=== PATIENT | male | born 1995 | race Two or more races ===

== ENCOUNTER 2018-03-15 17:05 | Emergency (ER) | payer MEDICAID ==
[~2018-03-15] VITALS: Ht 175.3 cm; Wt 86.3 kg
[~2018-03-15 17:05] MED LIST: CEPH500C5 PO
[2018-03-15 17:46] LABS: ALANINE AMINOTRANSFERASE 32 U/L (12-78); ALBUMIN 4.4 G/DL (3.4-5.0); ALBUMIN/GLOBULIN RATIO 1.3 (1.1-1.5); ALKALINE PHOSPHATASE 112 IU/L (46-116); ANION GAP 13 (8-16); ASPARTATE AMINO TRANSFERASE 24 U/L (10-37); BILIRUBIN,TOTAL 0.6 MG/DL (0.1-1.0); BLOOD UREA NITROGEN 13 MG/DL (7-18); BUN/CREATININE RATIO 10.3 (5.4-32.0); CALCIUM 8.8 MG/DL (8.5-10.1); CHLORIDE 104 MMOL/L (99-107); CREATININE 1.26 MG/DL (0.60-1.10); GLUCOSE 115 MG/DL (70-104); INR 1.1 INR; POTASSIUM 3.4 MMOL/L (3.5-5.1); SODIUM 142 MMOL/L (135-145); TOTAL CARBON DIOXIDE 24.7 MMOL/L (24-32); TOTAL PROTEIN 7.9 G/DL (6.4-8.2); eGFR 71 ML/MIN
[2018-03-15 17:49] LABS: BASOPHILS # (AUTO) 0.1 X10'3 (0-0.2); BASOPHILS % (AUTO) 0.9 % (0-1); EOSINOPHILS # (AUTO) 0.1 X10'3 (0-0.9); EOSINOPHILS % (AUTO) 0.6 % (0-6); HEMATOCRIT 49.3 % (42.0-52.0); HEMOGLOBIN 17.1 g/dl (14.0-17.9); LYMPHOCYTES # (AUTO) 2.1 X10'3 (1.1-4.8); LYMPHOCYTES % (AUTO) 16.6 % (21-51); MEAN CORPUSCULAR HEMOGLOBIN 31.4 PG (27.0-31.0); MEAN CORPUSCULAR HGB CONC 34.8 % (33.0-36.5); MEAN CORPUSCULAR VOLUME 90.5 FL (78-98); MEAN PLATELET VOLUME 11.9 FL (7.4-10.4); MONOCYTES # (AUTO) 0.8 X10'3 (0-0.9); MONOCYTES % (AUTO) 6.6 % (2-12); NEUTROPHILS # (AUTO) 9.3 X10'3 (1.8-7.7); NEUTROPHILS % (AUTO) 75.3 % (42-75); PLATELET COUNT 187 X10'3 (140-440); RED BLOOD COUNT 5.45 X10'6 (4.70-6.10); RED CELL DISTRIBUTION WIDTH 12.1 % (11.5-14.5); WHITE BLOOD COUNT 12.4 X10'3 (4.5-11.0)
[2018-03-15] MEDS ORDERED: iohexol 300mg/ml 100ml inj. ONE (19:35)
[2018-03-15 19:50] LABS: CLARITY,URINE CLEAR (Clear); COLOR,URINE YELLOW (Yellow); GLUCOSE, URINE NEGATIVE (Neg); KETONES,URINE 15 mg/dl (Neg); LEUKOCYTE ESTERASE ,URINE NEGATIVE (Neg); NITRITES, URINE NEGATIVE (Neg); OCCULT BLOOD,URINE NEGATIVE (Neg); PROTEIN,URINE NEGATIVE (Neg)
[2018-03-15 19:53] LABS: UA COLLECTION TYPE CLN CATCH MIDSTREAM
[2018-03-15 19:59] VITALS: BP 140/88
[2018-03-15] MEDS ORDERED: ONDA8TAB6 PO (20:25)
[2018-03-15] MEDS ORDERED: OMEP40CA37 PO (20:25)
== END 2018-03-15 20:34 | disposition home or self-care (01) ==
LOC: ER 17:06
DX: R10.13 Epigastric pain (principal); R10.31 Right lower quadrant pain; R10.84 Generalized abdominal pain; F17.200 Nicotine dependence, unspecified, uncomplicated; Z98.890 Other specified postprocedural states; Z79.899 Other long term (current) drug therapy
CPT/HCPCS: 36415; 74177; 80053; 81003; 85025; 85610; 99285; Q9967

== ENCOUNTER 2019-02-14 15:44 | Emergency (ER) | payer MEDICAID ==
[~2019-02-14] VITALS: Ht 177.8 cm; Wt 93.0 kg
[~2019-02-14 15:44] MED LIST changes: -CEPH500C5 PO; +ONDA8TAB6 PO
[2019-02-14] MEDS ORDERED: triamcinolone acetonide 40mg/ml inj IM ONE (16:40)
[2019-02-14] MEDS ORDERED: ketorolac tromethamine 15mg/ml inj. IM ONE (16:45)
[2019-02-14] MEDS ORDERED: DIPH-423 PO (16:59)
[2019-02-14] MEDS ORDERED: FAMO40TA73 PO (16:59)
[2019-02-14] MEDS ORDERED: PRED10TA23 PO (16:59)
[2019-02-14 17:28] VITALS: BP 140/79
== END 2019-02-14 17:30 | disposition home or self-care (01) ==
LOC: ER 15:45 → MERGE 15:45 → ER 17:30
DX: L23.7 Allergic contact dermatitis due to plants, except food (principal)
CPT/HCPCS: 96372; 99283; J1885; J3301

== ENCOUNTER 2019-03-13 06:33 | Emergency (ER) | payer MEDICAID ==
[~2019-03-13] VITALS: Ht 175.3 cm; Wt 93.2 kg
[~2019-03-13 06:33] MED LIST changes: +DIPH-423 PO; +FAMO40TA73 PO; +PRED10TA23 PO
[2019-03-13 06:34] VITALS: BP 133/73
--- NOTE | 2019-03-13 06:41 | NUR ---
PAIN IN RIGHT LOWER ABD FOR THE PAST 2 DAYS. STATES SHE HAS BEEN COUGHING UP BLOOD FOR THE PAST 2-3 WEEKS. HAVING LOOSE STOOLS ON AND OFF. TESTED FOR ULCERS IN THE PAST FOR THE SAME SYMPTOMS.
[2019-03-13 07:48] LABS: BASOPHILS % (AUTO) 0.4 % (0-1); EOSINOPHILS # (AUTO) 0.1 X10'3 (0-0.9); EOSINOPHILS % (AUTO) 2.3 % (0-6); HEMATOCRIT 44.8 % (42.0-52.0); HEMOGLOBIN 15.3 g/dl (14.0-17.9); LYMPHOCYTES # (AUTO) 1.2 X10'3 (1.1-4.8); LYMPHOCYTES % (AUTO) 22.2 % (21-51); MEAN CORPUSCULAR HEMOGLOBIN 31.3 PG (27.0-31.0); MEAN CORPUSCULAR VOLUME 91.9 FL (78-98); MEAN PLATELET VOLUME 11.1 FL (7.4-10.4); MONOCYTES # (AUTO) 0.5 X10'3 (0-0.9); MONOCYTES % (AUTO) 9.5 % (2-12); NEUTROPHILS # (AUTO) 3.7 X10'3 (1.8-7.7); NEUTROPHILS % (AUTO) 65.6 % (42-75); PLATELET COUNT 155 X10'3 (140-440); RED BLOOD COUNT 4.88 X10'6 (4.70-6.10); RED CELL DISTRIBUTION WIDTH 13.2 % (11.5-14.5); WHITE BLOOD COUNT 5.6 X10'3 (4.5-11.0)
[2019-03-13 08:06] LABS: ALANINE AMINOTRANSFERASE 27 U/L (12-78); ALBUMIN 4.1 G/DL (3.4-5.0); ALBUMIN/GLOBULIN RATIO 1.1 (1.1-1.5); ALKALINE PHOSPHATASE 92 IU/L (46-116); ANION GAP 10 (8-16); ASPARTATE AMINO TRANSFERASE 15 U/L (10-37); BILIRUBIN,TOTAL 0.4 MG/DL (0.1-1.0); BLOOD UREA NITROGEN 11 MG/DL (7-18); BUN/CREATININE RATIO 10.1 (5.4-32.0); CALCIUM 9.1 MG/DL (8.5-10.1); CHLORIDE 107 MMOL/L (99-107); CREATININE 1.09 MG/DL (0.60-1.10); GLUCOSE 97 MG/DL (70-104); LIPASE 70 U/L (73-393); POTASSIUM 3.8 MMOL/L (3.5-5.1); SODIUM 143 MMOL/L (135-145); TOTAL CARBON DIOXIDE 26.2 MMOL/L (24-32); TOTAL PROTEIN 7.9 G/DL (6.4-8.2); eGFR 83 ML/MIN
[2019-03-13 08:07] LABS: LARGE PLATELETS FEW; PLATELET ESTIMATE NORMAL
== END 2019-03-13 08:43 | disposition home or self-care (01) ==
LOC: ER 06:33
DX: R04.2 Hemoptysis (principal); R10.31 Right lower quadrant pain; F17.200 Nicotine dependence, unspecified, uncomplicated; Z79.899 Other long term (current) drug therapy
CPT/HCPCS: 36415; 71046; 80053; 83690; 85025; 85610; 99284

== ENCOUNTER 2019-03-18 08:24 | Emergency (ER) | payer MEDICAID ==
[~2019-03-18] VITALS: Ht 175.3 cm; Wt 93.2 kg
[~2019-03-18 08:24] MED LIST changes: -PRED10TA23 PO
[2019-03-18] MEDS ORDERED: pantoprazole 40mg Tablet.DR PO ONE (08:50)
[2019-03-18] MEDS ORDERED: famotidine 20mg tablet PO ONE (08:50)
[2019-03-18] MEDS ORDERED: PANT-47 PO (08:51)
[2019-03-18 09:14] VITALS: BP 139/109
[2019-03-19] MEDS ORDERED: SUCR1TAB34 PO (10:45)
[2019-03-19] MEDS ORDERED: HYDR-3965 PO (10:45)
== END 2019-03-18 09:18 | disposition home or self-care (01) ==
LOC: ER 08:24
DX: R04.2 Hemoptysis (principal); Z98.890 Other specified postprocedural states; Z79.899 Other long term (current) drug therapy
CPT/HCPCS: 99283

== ENCOUNTER 2019-03-19 08:27 | Emergency (ER) | payer MEDICAID ==
[~2019-03-19] VITALS: Ht 175.3 cm; Wt 93.1 kg
[~2019-03-19 08:27] MED LIST changes: +PANT-47 PO
[2019-03-19] MEDS ORDERED: famotidine 10mg tablet PO ONE (09:05)
[2019-03-19] MEDS ORDERED: mag hydrox/Alum hydrox/simeth 30ml oral suspension PO ONE (09:05)
[2019-03-19] MEDS ORDERED: famotidine 10mg tablet PO SCH (09:05)
[2019-03-19] MEDS ORDERED: famotidine 20mg tablet PO ONE (09:20)
[2019-03-19] MEDS: LIDOcaine Viscous 15ml cup MM PRN ×2 (09:27→09:34)
[2019-03-19 09:33] LABS: BASOPHILS % (AUTO) 0.4 % (0-1); EOSINOPHILS # (AUTO) 0.1 X10'3 (0-0.9); EOSINOPHILS % (AUTO) 1.7 % (0-6); HEMATOCRIT 42.5 % (42.0-52.0); HEMOGLOBIN 15.1 g/dl (14.0-17.9); LYMPHOCYTES # (AUTO) 1.1 X10'3 (1.1-4.8); LYMPHOCYTES % (AUTO) 14.8 % (21-51); MEAN CORPUSCULAR HEMOGLOBIN 31.9 PG (27.0-31.0); MEAN CORPUSCULAR HGB CONC 35.4 g/dL (33.0-36.5); MEAN CORPUSCULAR VOLUME 90.1 FL (78-98); MEAN PLATELET VOLUME 9.8 FL (7.4-10.4); MONOCYTES # (AUTO) 0.6 X10'3 (0-0.9); MONOCYTES % (AUTO) 8.1 % (2-12); NEUTROPHILS # (AUTO) 5.6 X10'3 (1.8-7.7); PLATELET COUNT 161 X10'3 (140-440); RED BLOOD COUNT 4.72 X10'6 (4.70-6.10); WHITE BLOOD COUNT 7.5 X10'3 (4.5-11.0)
[2019-03-19 09:56] LABS: GLUCOSE 103 MG/DL (70-104)
[2019-03-19 09:57] LABS: ALANINE AMINOTRANSFERASE 27 U/L (12-78); ALBUMIN 3.9 G/DL (3.4-5.0); ALBUMIN/GLOBULIN RATIO 1.1 (1.1-1.5); ALKALINE PHOSPHATASE 93 IU/L (46-116); ANION GAP 9 (8-16); ASPARTATE AMINO TRANSFERASE 16 U/L (10-37); BILIRUBIN,TOTAL 0.6 MG/DL (0.1-1.0); BLOOD UREA NITROGEN 10 MG/DL (7-18); BUN/CREATININE RATIO 9.1 (5.4-32.0); CALCIUM 8.9 MG/DL (8.5-10.1); CHLORIDE 105 MMOL/L (99-107); LIPASE 78 U/L (73-393); POTASSIUM 3.6 MMOL/L (3.5-5.1); SODIUM 141 MMOL/L (135-145); TOTAL CARBON DIOXIDE 27.1 MMOL/L (24-32); TOTAL PROTEIN 7.6 G/DL (6.4-8.2); eGFR 82 ML/MIN
[2019-03-19] MEDS ORDERED: ondansetron/PF 4mg/2ml inj IV ONE (10:00)
[2019-03-19] MEDS ORDERED: morphine 4 MG/ML inj SYRINge IV PRN (10:00)
[2019-03-19] MEDS ORDERED: normal saline 1000ML IV soln IVB ONE (10:00)
[2019-03-19 10:06] LABS: H PYLORI ANTIBODY NEGATIVE (Neg)
[2019-03-19] MEDS ORDERED: SUCR1TAB34 PO (10:45)
[2019-03-19] MEDS ORDERED: HYDR-3965 PO (10:45)
[2019-03-19 11:08] VITALS: BP 167/69
== END 2019-03-19 11:11 | disposition home or self-care (01) ==
LOC: ER 08:28
DX: R10.13 Epigastric pain (principal); R10.12 Left upper quadrant pain; R11.10 Vomiting, unspecified; Z98.890 Other specified postprocedural states; Z79.899 Other long term (current) drug therapy
CPT/HCPCS: 36415; 80053; 83690; 85025; 86677; 96374; 96375; 99283; J2270; J2405; J7030; 96361

== ENCOUNTER 2020-08-15 09:42 | Emergency (ER) | payer MEDICAID ==
[~2020-08-15] VITALS: Ht 175.3 cm; Wt 102.0 kg
[~2020-08-15 09:42] MED LIST changes: +SUCR1TAB34 PO
[2020-08-15] MEDS ORDERED: TETanus/Pertussis (Acell)/Diphther VAC/PF (Tdap-Adult) 0.5ml syringe IMVAC ONE (10:05)
[2020-08-15] MEDS ORDERED: acetaminophen 325mg tablet PO ONE (10:05)
--- NOTE | 2020-08-15 10:36 | NUR ---
2 BAGS OF ICE APPLIED TO HIS LEFT HAND
[2020-08-15] MEDS ORDERED: HYDR-3965 PO (10:51)
[2020-08-15 11:06] VITALS: BP 125/60
== END 2020-08-15 11:05 | disposition home or self-care (01) ==
LOC: ER 09:42
DX: M79.642 Pain in left hand (principal); Z98.890 Other specified postprocedural states; Z79.899 Other long term (current) drug therapy; V00.848A Other accident with standing micro-mobility pedestrian conveyance, initial encounter; Y93.89 Activity, other specified; Y92.488 Other paved roadways as the place of occurrence of the external cause; Y99.8 Other external cause status
CPT/HCPCS: 29125; 73130; 90471; 90715; 99283

== ENCOUNTER 2020-10-19 09:53 | Emergency (ER) | payer MEDICAID ==
[~2020-10-19] VITALS: Ht 175.3 cm; Wt 102.3 kg
[2020-10-19 11:13] VITALS: BP 155/87
[2020-10-19] MEDS ORDERED: ipratropium/albuterol 3ml nebule NEB ONE (11:20)
[2020-10-19 11:44] LABS: BASOPHILS # (AUTO) 0.1 X10'3 (0-0.2); BASOPHILS % (AUTO) 0.8 % (0-1); EOSINOPHILS % (AUTO) 0.2 % (0-6); HEMATOCRIT 46.6 % (42.0-52.0); HEMOGLOBIN 16.1 g/dl (14.0-17.9); LYMPHOCYTES # (AUTO) 1.6 X10'3 (1.1-4.8); LYMPHOCYTES % (AUTO) 19.3 % (21-51); MEAN CORPUSCULAR HGB CONC 34.6 g/dL (33.0-36.5); MEAN CORPUSCULAR VOLUME 89.6 FL (78-98); MEAN PLATELET VOLUME 10.7 FL (7.4-10.4); MONOCYTES # (AUTO) 0.4 X10'3 (0-0.9); MONOCYTES % (AUTO) 5.1 % (2-12); NEUTROPHILS # (AUTO) 6.1 X10'3 (1.8-7.7); NEUTROPHILS % (AUTO) 74.6 % (42-75); PLATELET COUNT 186 X10'3 (140-440); RED BLOOD COUNT 5.19 X10'6 (4.70-6.10); RED CELL DISTRIBUTION WIDTH 13.1 % (11.5-14.5); WHITE BLOOD COUNT 8.2 X10'3 (4.5-11.0)
[2020-10-19 11:56] LABS: ALANINE AMINOTRANSFERASE 38 U/L (12-78); ALBUMIN 4.5 G/DL (3.4-5.0); ALBUMIN/GLOBULIN RATIO 1.2 (1.1-1.5); ALKALINE PHOSPHATASE 113 IU/L (46-116); ANION GAP 10 (8-16); ASPARTATE AMINO TRANSFERASE 24 U/L (10-37); BILIRUBIN,TOTAL 0.4 MG/DL (0.1-1.0); BLOOD UREA NITROGEN 13 MG/DL (7-18); BUN/CREATININE RATIO 12.3 (5.4-32.0); CHLORIDE 107 MMOL/L (99-107); CREATININE 1.06 MG/DL (0.60-1.10); GLUCOSE 102 MG/DL (70-104); POTASSIUM 4.1 MMOL/L (3.5-5.1); SODIUM 140 MMOL/L (135-145); TOTAL CARBON DIOXIDE 23.1 MMOL/L (24-32); TOTAL PROTEIN 8.2 G/DL (6.4-8.2); eGFR 84 ML/MIN
[2020-10-19] MEDS ORDERED: BENZ-16 PO (12:22)
[2020-10-19] MEDS ORDERED: PRED20TA PO (12:22)
[2020-10-19] MEDS ORDERED: AMOX-580 PO (12:22)
== END 2020-10-19 13:00 | disposition home or self-care (01) ==
LOC: ER 09:53
DX: H66.91 Otitis media, unspecified, right ear (principal); J45.21 Mild intermittent asthma with (acute) exacerbation; R19.7 Diarrhea, unspecified; R06.02 Shortness of breath; R05 Cough; R51.9 Headache, unspecified; R11.2 Nausea with vomiting, unspecified; Z98.890 Other specified postprocedural states; Z79.2 Long term (current) use of antibiotics; Z79.899 Other long term (current) drug therapy
CPT/HCPCS: 36415; 71045; 80053; 85025; 94640; 94760; 99284

== ENCOUNTER 2021-10-04 21:50 | Emergency (ER) | payer MEDICAID ==
[~2021-10-04] VITALS: Ht 175.3 cm; Wt 100.0 kg
== END 2021-10-04 23:01 | disposition left against medical advice (07) ==
LOC: ER 21:51
DX: R07.9 Chest pain, unspecified (principal); Z53.21 Procedure and treatment not carried out due to patient leaving prior to being seen by health care provider
CPT/HCPCS: 93005

== ENCOUNTER 2021-12-13 12:13 | Emergency (ER) | payer BC, MEDICAID ==
[~2021-12-13] VITALS: Ht 175.3 cm; Wt 100.0 kg
[2021-12-13 12:48] LABS: HEMOGLOBIN 16.1 g/dl (14.0-17.9)
[2021-12-13 12:50] LABS: BASOPHILS % (AUTO) 0.6 % (0-1); EOSINOPHILS % (AUTO) 0.5 % (0-6); HEMATOCRIT 47.4 % (42.0-52.0); LYMPHOCYTES % (AUTO) 25.5 % (21-51); MEAN CORPUSCULAR HEMOGLOBIN 29.3 PG (27.0-31.0); MEAN CORPUSCULAR VOLUME 86.2 FL (78-98); MONOCYTES # (AUTO) 0.4 X10'3 (0-0.9); MONOCYTES % (AUTO) 5.8 % (2-12); NEUTROPHILS # (AUTO) 5.2 X10'3 (1.8-7.7); NEUTROPHILS % (AUTO) 67.6 % (42-75); PLATELET COUNT 213 X10'3 (140-440); RED BLOOD COUNT 5.49 X10'6 (4.70-6.10); RED CELL DISTRIBUTION WIDTH 12.5 % (11.5-14.5); WHITE BLOOD COUNT 7.7 X10'3 (4.5-11.0)
[2021-12-13 13:20] LABS: LARGE PLATELETS FEW; PLATELET ESTIMATE NORMAL
[2021-12-13 14:32] LABS: ALANINE AMINOTRANSFERASE 31 U/L (12-78); ALBUMIN 4.4 G/DL (3.4-5.0); ALBUMIN/GLOBULIN RATIO 1.1 (1.1-1.5); ALKALINE PHOSPHATASE 107 IU/L (46-116); ANION GAP 11 (8-16); ASPARTATE AMINO TRANSFERASE 25 U/L (10-37); BILIRUBIN,TOTAL 0.5 MG/DL (0.1-1.0); BLOOD UREA NITROGEN 11 MG/DL (7-18); BUN/CREATININE RATIO 10.4 (5.4-32.0); CALCIUM 9.2 MG/DL (8.5-10.1); CHLORIDE 107 MMOL/L (99-107); CREATININE 1.06 MG/DL (0.60-1.10); GLUCOSE 114 MG/DL (70-104); POTASSIUM 4.2 MMOL/L (3.5-5.1); SODIUM 141 MMOL/L (135-145); TOTAL CARBON DIOXIDE 22.9 MMOL/L (24-32); TOTAL PROTEIN 8.3 G/DL (6.4-8.2); eGFR 84 ML/MIN
[2021-12-13 15:35] LABS: D-DIMER < 0.19 MG/L FEU (0-0.50)
[2021-12-13 16:25] VITALS: BP 140/88
== END 2021-12-13 16:27 | disposition home or self-care (01) ==
LOC: ER 12:14
DX: R07.89 Other chest pain (principal)
CPT/HCPCS: 36415; 71045; 80053; 83880; 84484; 85008; 85025; 85379; 93005; 99285

== ENCOUNTER 2025-01-10 07:34 | Emergency (ER) | payer BC ==
[~2025-01-10] VITALS: Ht 175.3 cm; Wt 100.5 kg
[~2025-01-10 07:34] MED LIST changes: +OMEP1COM PO
[2025-01-10 07:39] VITALS: BP 143/91; PULSE 70; RESP 16; TEMP 98.5; O2SAT 99
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
[2025-01-10] MEDS ORDERED: AMOX-580 PO (09:39)
== END 2025-01-10 09:45 | disposition home or self-care (01) ==
LOC: ER 07:35
DX: H66.93 Otitis media, unspecified, bilateral (principal); Z79.899 Other long term (current) drug therapy
CPT/HCPCS: 99283

== ENCOUNTER 2025-01-14 08:27 | Emergency (ER) | payer BC ==
[~2025-01-14] VITALS: Ht 175.3 cm; Wt 106.5 kg
[~2025-01-14 08:27] MED LIST changes: +AMOX-580 PO
[2025-01-14 08:30] VITALS: TEMP 98.5
[2025-01-14 09:07] LABS: MEAN PLATELET VOLUME 10.6 FL (7.4-10.4); RED CELL DISTRIBUTION WIDTH 13.4 % (11.5-14.5)
--- NOTE | 2025-01-14 09:14 | Physician Documentation ---
History of Present Illness Chief Complaint: Abdominal Pain Stated Complaint: MEDICATION REACTION Time Seen by MD: 08:46 Primary Medical Doctor: NONE Mode of Arrival: POV, Ambulatory HPI 29-year-old male presents to the ED with a abdominal pain abdominal distention profuse diarrhea and gas. States that he was in [place] aproximally one week ago. Incidentally he has also been treated for recent ear infection and prescribed steroids to help with inner ear inflammation. Medication Reconciliation Allergies: Coded Allergies: No Known Allergies (Unverified , 01/14/25) Scheduled Amox Tr/Potassium Clavulanate 875/125 MG (Augmentin 875/125 MG), 1 TAB PO Q12H Diphenhydramine Hcl (Benadryl), 25 MG PO TID Famotidine (Pepcid), 1 TAB PO DAILY Omeprazole/Clarith/Amoxicillin (Omeclamox-Ruben Combo Pack), 1 TAB PO Q12H Pantoprazole Sodium (PROTONIX tablet), 1 TAB PO DAILY Sucralfate (Carafate), 1 TAB PO Q6H Sulfamethoxazole/Trimethoprim (Septra Ds Tab), 1 TAB PO Q12H Scheduled PRN Ondansetron Hcl (Zofran), 8 MG PO Q8HPRN PRN for nausea/vomiting Past Medical History Past Medical History: No Pertinent History, Extremity Fracture Past Surgical History: orthopedic surgeries Alcohol Use: None Drug Use: none Lives In: Home Occupation: employed Physical Exam Vital Signs: Temperature: 98.5, Source: Temporal, Heart Rate: 75, Respiratory Rate: 16, BP: 133/83, Pulse Oximetry: 95, Weight: 106.500 Oxygen Flow Rate: 0 Physical Exam General: Alert, no apparent distress. HEENT: PERRL, EOMI, no injection, moist mucous membranes. Neck: Full range of motion. Respiratory: Lungs clear, no respiratory distress. Chest: No accessory muscle use. Cardiovascular: Regular rate and rhythm, no murmurs. Gastrointestinal: Soft, n tender in the upper quadrants of the abdomen distended bowel sounds present Extremities: Normal range of motion, no deformity. Neurologic: Oriented x4. Psychiatric: Normal mood and affect. Skin: Normal color, warm and dry. No edema, no ecchymosis. Progress Results/Orders Results/Orders Orders - TEX BAUTISTA GRADES 1 THROUGH 5 TEACHER Urinalysis, Cult If Indicated (01/14/25 08:48) Cbc/Diff (01/14/25 08:48) BMP (01/14/25 08:48) Lipase (01/14/25 08:48) CMP (01/14/25 08:48) Vital Signs 01/14/25 01/14/25 01/14/25 08:30 08:59 09:00 Temp 98.5 Pulse 80 75 Resp 16 16 16 B/P (MAP) 117/84 133/83 (100) Pulse Ox 98 95 O2 Flow Rate 0 0 Laboratory Tests Test 01/14/25 08:57 White Blood Count 12.2 H Red Blood Count 4.71 Hemoglobin 14.3 Hematocrit 41.8 L Mean Corpuscular Volume 88.8 Mean Corpuscular Hemoglobin 30.4 Mean Corpuscular Hemoglobin Concent 34.2 Red Cell Distribution Width 13.4 Platelet Count 143 Mean Platelet Volume 10.6 H Neutrophils (%) (Auto) 67.1 Lymphocytes (%) (Auto) 23.9 Monocytes (%) (Auto) 7.3 Eosinophils (%) (Auto) 1.4 Basophils (%) (Auto) 0.3 Neutrophils # (Auto) 8.2 H Lymphocytes # (Auto) 2.9 Monocytes # (Auto) 0.9 Eosinophils # (Auto) 0.2 Basophils # (Auto) 0.0 CBC Comment Chemistry Comments Departure Disposition: HOME / SELF CARE / HOMELESS Impression: Primary Impression: Abdominal pain Additional Impression: Travelers' diarrhea Condition: Stable Discharge Instructions: Abdominal Pain, Adult, [id number] Referrals: NO PRIMARY CARE PROVIDER (PCP) Prescriptions Sulfamethoxazole/Trimethoprim (Septra Ds Tab) 800 Mg/160 Mg Tablet 1 TAB PO Q12H for 10 Days, #20 TAB Prov: TEX BAUTISTA NP 01/14/25 Education Educated: Patient Educated regarding: diagnosis Signature Scribe Signature: f Attestation: Scribed for Tex Bautista [employer] To [employer] Sales Representative by Tex Montaño NP . 01/14/25 17:47 TEX BAUTISTA NP Jan 14, 2025 09:14
[2025-01-14 09:23] LABS: CREATININE 1.15 MG/DL (0.60-1.10); TOTAL CARBON DIOXIDE 29.8 MMOL/L (24-32); eCRCL 94 ML/MIN; eGFR 75 ML/MIN
[2025-01-14 09:33] LABS: BANDS% (MANUAL) 1.0 % (0-10); EOSINOPHILS % (MANUAL) 1.0 % (0-6); LYMPHOCYTES % (MANUAL) 30.0 % (21-51); METAMYLEOCYTES% (MANUAL) 2.0 % (0-0); MONOCYTES % (MANUAL) 9.0 % (2-12); NEUTROPHILS % (MANUAL) 57.0 % (42-75)
[2025-01-14] MEDS ORDERED: SULF1TAB45 PO (09:33)
[2025-01-14 09:34] LABS: LARGE PLATELETS FEW; PLATELET ESTIMATE NORMAL
[2025-01-14] MEDS: bismuth subsalicylate 262mg chew tablet PO SCH (09:34)
[2025-01-14] MEDS: loperamide 2mg capsule PO ONE (09:51)
[2025-01-14] MEDS: sulfamethoxazole/trimethoprim DS (800/160mg) tablet PO ONE (09:51)
[2025-01-14 09:58] VITALS: BP 133/83; PULSE 75; RESP 16; O2SAT 95
== END 2025-01-14 09:59 | disposition home or self-care (01) ==
LOC: ER 08:28
DX: R10.9 Unspecified abdominal pain (principal); R19.7 Diarrhea, unspecified
CPT/HCPCS: 36415; 80053; 83690; 85007; 85025; 99283